=== PATIENT | male | born 1985 | race Hispanic/Latino ===

== ENCOUNTER 2017-02-07 01:32 | Day surgery (SDC) | payer OTHER ==
[~2017-02-07] VITALS: Ht 167.6 cm; Wt 93.9 kg
[2017-02-07 02:06] LABS: HEMATOCRIT 43.6 % (38.0-50.0); MCHC 36.2 G/DL (30.0-36.0); MCV 88.4 FL (86-99); MEAN PLAT.VOLUME 9.1 uM^3 (9.0-12.4); PLATELET COUNT 253 K/uL (156-360); RBC DIS.WIDTH-CV 11.8 % (11.8-14.6); RBC DIS.WIDTH-SD 37.9 % (39-53); RED BLOOD COUNT 4.93 M/uL (4.00-5.50); WHITE BLOOD COUNT 13.9 K/uL (4.1-10.2)
[2017-02-07 02:12] LABS: ADD MIUA? YES; BILIRUBIN NEGATIVE; BLOOD NEGATIVE; COLOR YELLOW ((YELLOW)); GLUCOSE (STRIP) NEGATIVE; KETONES NEGATIVE; LEUKOCYTES NEGATIVE; NITRITE NEGATIVE; PROTEIN (STRIP) NEGATIVE; UROBILINOGEN 0.2 MG/DL (0.2-1.0)
[2017-02-07 02:18] LABS: BACTERIA NONE SEEN /HPF; EPITHELIAL CELLS NONE SEEN /HPF; MUCUS TRACE /LPF; RED BLOOD CELLS 0-5 /HPF (0-5); UCUL ADDED? NO; WHITE BLOOD CELLS 0-5 /HPF (0-5)
[2017-02-07 02:19] LABS: CHLORIDE 102 mEq/L (99-109); POTASSIUM 3.9 mEq/L (3.7-5.4); SODIUM 139 mEq/L (136-147)
[2017-02-07 02:21] LABS: GLUCOSE 140 mg/dL (70-99)
[2017-02-07 02:23] LABS: ANION GAP 12 MEQ/L (2-14); TOTAL BILIRUBIN 0.6 mg/dL (0.0-1.0)
[2017-02-07 02:25] LABS: ALKALINE PHOSPHATASE 87 IU/L (3-129)
[2017-02-07 02:26] LABS: UREA NITROGEN (BUN) 14 mg/dL (9-23)
[2017-02-07 02:38] LABS: GFR ESTIMATE (CALCULATED) > 59 mL/min/
[2017-02-07 03:54] LABS: LIPASE 19 U/L (1.0-51.0)
[2017-02-07 09:54] VITALS: BP 108/71
[2017-02-07 13:08] VITALS: BP 130/63
[2017-02-07 17:06] VITALS: BP 116/62
[2017-02-08 00:18] VITALS: BP 106/56
[2017-02-08 07:06] LABS: ALKALINE PHOSPHATASE 57 IU/L (3-129); DIRECT BILIRUBIN 0.2 mg/dL (0.0-0.3); TOTAL BILIRUBIN 1.1 MG/DL (0.0-1.0)
[2017-02-08 07:07] LABS: HEMATOCRIT 38.8 % (38.0-50.0); MCH 31.3 PG (29.0-34.0); MCHC 34.3 G/DL (30.0-36.0); MCV 91.3 FL (86-99); RED BLOOD COUNT 4.25 M/uL (4.00-5.50); WHITE BLOOD COUNT 10.7 K/uL (4.1-10.2)
[2017-02-08 07:08] LABS: MEAN PLAT.VOLUME 9.1 uM^3 (9.0-12.4); PLATELET COUNT 215 K/uL (156-360); RBC DIS.WIDTH-CV 12.4 % (11.8-14.6); RBC DIS.WIDTH-SD 41.6 % (39-53)
[2017-02-08 07:34] VITALS: BP 110/63
[2017-02-08 09:36] LABS: HBSG INDEX 0.22
[2017-02-08 09:37] LABS: ANTI-HEPATITIS A VIRUS (IGM) Nonreactive; HAV INDEX 0.12; HPCA INDEX 0.23
[2017-02-08 09:38] LABS: ANTI-HEPATITIS B CORE (IGM) Nonreactive; HBC IgM INDEX 0.22
[2017-02-08] MEDS ORDERED: PERCOCET 5/31 TABLET PO (11:22)
[2017-02-08] MEDS ORDERED: COLACE100 MG PO (11:22)
[2017-02-08 21:49] VITALS: BP 117/72
[2017-02-09] VITALS: BP 136/70
[2017-02-09 04:12] VITALS: BP 115/67
[2017-02-09 07:18] VITALS: BP 107/62
== END 2017-02-09 11:08 | disposition home or self-care (01) ==
LOC: EME 01:32 → SDC 06:12 → EME 06:12 → 5SOUTH 07:58 → 2SOUTH 07:58 → CANRESERV 08:10 → ENRESERV 08:10 → 5SOUTH 09:42
PROVIDERS: Internal Medicine; Surgery
PROC: 0DTJ4ZZ Resection of Appendix, Percutaneous Endoscopic Approach (ICD-10-PCS; principal; 2017-02-07)
DX: K35.80 Unspecified acute appendicitis (principal); R74.0 Nonspecific elevation of levels of transaminase and lactic acid dehydrogenase [LDH]; K76.0 Fatty (change of) liver, not elsewhere classified
CPT/HCPCS: 71020; 74177; 80053; 80074; 80076; 81003; 82248; 83690; 85027; 88304; 94799; 99281; 99285; G0378; J0295; J0330; J1650; J2250; J2405; J2710; J3010; J7030; J7050